=== PATIENT | male | born 1970 | race Caucasian/White ===

== ENCOUNTER 2021-11-13 14:32 | Emergency (ER) | payer SELFPAY ==
[2021-11-13 14:46] VITALS: BP 152/114; PULSE 108
[2021-11-13] MEDS ORDERED: Potassium Chloride 20 MEQ Tab.ER PO ONE (16:02)
[2021-11-13] MEDS: Potassium Chloride Riders 10 MEQ in Premix Bag 1 BAG IV SCH ×3 (16:14→18:33)
[2021-11-13] MEDS ORDERED: Magnesium Sulfate/Water 2 GM in Premix Bag 1 BAG IV ONE (16:17)
[2021-11-13] MEDS ORDERED: Magnesium Sulfate/Water 4 GM in Premix Bag 1 BAG IV ONE (16:17)
== END 2021-11-13 20:30 | disposition home or self-care (01) ==
LOC: JD.ED 14:32
DX: R55 Syncope and collapse (principal); E87.6 Hypokalemia; E83.42 Hypomagnesemia; I10 Essential (primary) hypertension; Z79.899 Other long term (current) drug therapy
CPT/HCPCS: 36415; 70450; 80053; 80306; 80307; 82977; 83735; 84484; 85025; 85610; 93005; 96365; 96366; 96368; 99285; A9270; J3475; J3480; 93010; 99284